=== PATIENT | female | born 1945 | race Caucasian/White ===

== ENCOUNTER → 2017-03-08 | Day surgery (SDC) | payer MEDICARE ==
[~2017-03-08] MED LIST: BUPIVACAINE HCL PF 0.75% 30 ML VIAL ONE; BUPIVACAINE/EPINEPHRINE 0.25% PF 30 ML VIAL INFIL ONE; CALC500T19 PO; CETI10 PO; LACTATED RINGER'S 1000 ML INJ 1,000 ML ONE; METO25 PO; MIDAZOLAM HCL 5 MG/ML VIAL (1 ML) ONE; ONDANSETRON HCL 4 MG/2 ML VIAL IV PUSH ONE; PROPOFOL 100 MG/10 ML INJ IV ONE; VITA200017 PO; ceFAZolin 2 GM PREMIX 50 ML ONE
--- NOTE | 2017-03-08 13:43 | MP ---
cc: LORRIE WILLOUGHBY M.D. DATE OF SURGERY 03/08/2017 PREOPERATIVE DIAGNOSIS Left acromioclavicular joint debilitating arthritis. POSTOPERATIVE DIAGNOSIS Left acromioclavicular joint debilitating arthritis. PROCEDURE Left distal clavicle open excision. ANESTHESIA Interscalene block and general. SURGEON Lorrie Willoughby MD [employer] MANAGER SURGEON REINA Campos ESTIMATED BLOOD LOSS Approximately 30 cc. COMPLICATIONS None known. SPECIMEN Bone fragment discarded. 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 Having failed conservative management and having persistent symptoms, she is indicated for surgical intervention. The risks and benefits have thoroughly been reviewed. She has a good understanding. She wished to press on with surgery. A detailed, informed consent was obtained. The ssn/ssbn assistant navigator is an advanced registered nurse practitioner and his skill set was medically necessary to help hold the extremity and retract and protect the patient's vital structures. His skill set was medically necessary to perform the operation. PROCEDURE The patient was given interscalene block in the operating room, brought to the operating room and placed under general anesthetic. The left upper extremities was prepped and draped in the usual sterile fashion. IV antibiotics were given. Time-out was completed. We did inject additional Marcaine about the planned incision. Incision was made directly over the AC joint after the time-out was completed, taken through the subcutaneous tissue, down to the fascial layer, subperiosteal dissection splitting the fascia on top of the clavicle and then exposing distal 15 mm and proceeding to resect this, resecting disk tissue and some osteophyte off the acromion and then irrigated out with copious amounts of irrigation. Excellent hemostasis. Proceeded to close in layers of absorbable suture, subcuticular on the skin. Steri-Strips applied. Sterile dressing applied. The patient was awoken and returned to the recovery room in stable condition. MD DANELLE Son/EMMIE /11:59 AM /1:33 PM
== END | disposition home or self-care (01) ==
LOC: ESDC 08:55
PROVIDERS: ATTEND Orthopaedic Surgery Sports Medicine
DX: M19.012 Primary osteoarthritis, left shoulder (principal)
CPT/HCPCS: 00450; 01991; 23120; 64417; J0690; J2250; J2405; J3010; J7120